=== PATIENT | male | born 1950 | race Caucasian/White ===

== ENCOUNTER 2017-02-23 11:12 | Emergency (ER) | payer OTHER ==
[~2017-02-23] VITALS: Ht 172.7 cm; Wt 90.9 kg
[2017-02-23] MEDS ORDERED: TERAZOSIN5 MG PO (11:21)
[2017-02-23] MEDS ORDERED: PRILOSEC 20MG20 MG PO (11:21)
[2017-02-23] MEDS ORDERED: KEFLEX750 M1 PO (13:21)
[2017-02-23 13:23] VITALS: BP 150/94
== END 2017-02-23 13:30 | disposition home or self-care (01) ==
LOC: ED 11:12
DX: S61.210A Laceration without foreign body of right index finger without damage to nail, initial encounter (principal); W31.89XA Contact with other specified machinery, initial encounter; I10 Essential (primary) hypertension
CPT/HCPCS: A4550

== ENCOUNTER 2017-03-06 12:09 | Emergency (ER) | payer OTHER ==
[~2017-03-06 12:09] MED LIST: KEFLEX750 M1 PO; PRILOSEC 20MG20 MG PO; TERAZOSIN5 MG PO
[2017-03-06 13:14] VITALS: BP 168/87
== END 2017-03-06 13:14 | disposition home or self-care (01) ==
LOC: ED 12:09
DX: Z48.02 Encounter for removal of sutures (principal)
CPT/HCPCS: A4649